=== PATIENT | female | born 1975 | race Caucasian/White ===

== ENCOUNTER → 2016-10-03 | Outpatient (CLI) | payer BC ==
[2016-10-03 11:45] LABS: BASO % 0.5 %; BASO ABS # 0.03 K/uL (0-0.2); COMPLETE YES; EOS % 0.6 %; HEMATOCRIT 36.1 % (37-47); IG% 0.2 %; LYMPH % 25.2 %; LYMPH ABS # 1.65 K/uL (1.2-3.4); MEAN CELL VOLUME 90.9 fL (80-100); MEAN CORPUSCULAR HEMOGLOBIN 30.5 pg (25-34); MEAN CORPUSCULAR HGB CONC 33.5 g/dl (32-36); MEAN PLATELET VOLUME 10.3 fL (7.4-10.4); MONO % 7.3 %; NEUT % 66.2 %; PLATELET COUNT 299 K/uL (130-400); RED BLOOD COUNT 3.97 M/uL (4.2-5.4); WHITE BLOOD COUNT 6.54 K/uL (4.8-10.8)
[2016-10-03 13:20] LABS: ALT/SGPT 21 U/L (12-78); AST/SGOT 13 U/L (15-37); BLOOD UREA NITROGEN 10 mg/dl (7-18); BUN/CREATININE RATIO 11.5 (10-20); CALCIUM 8.4 mg/dl (8.5-10.1); CARBON DIOXIDE 24 mmol/L (21-32); CHLORIDE 108 mmol/L (98-107); CREATININE 0.84 mg/dl (0.60-1.20); GLUCOSE 87 mg/dl (70-99); POTASSIUM 4.2 mmol/L (3.5-5.1); SODIUM 142 mmol/L (136-145)
[2016-10-03 13:29] LABS: ALKALINE PHOSPHATASE 114 U/L (45-117); FERRITIN 8.3 ng/ml (8.0-388.0)
[2016-10-06 22:33] LABS: MICROSOMAL AB <1 IU/ML (<9); T3 REVERSE **TC 90963 15 ng/dL (8-25)
== END | disposition home or self-care (01) ==
LOC: C.LAB 11:03
PROVIDERS: ATTEND Chiropractor
DX: M79.1 Myalgia (principal)

== ENCOUNTER → 2016-12-09 | Outpatient (CLI) | payer BC ==
[2016-12-09 13:24] LABS: BASO % 0.5 %; BASO ABS # 0.03 K/uL (0-0.2); COMPLETE YES; EOS % 0.9 %; HEMATOCRIT 29.3 % (37-47); IG% 0.3 %; LYMPH % 27.6 %; LYMPH ABS # 1.83 K/uL (1.2-3.4); MEAN CELL VOLUME 90.4 fL (80-100); MEAN CORPUSCULAR HEMOGLOBIN 30.2 pg (25-34); MEAN CORPUSCULAR HGB CONC 33.4 g/dl (32-36); MEAN PLATELET VOLUME 10.7 fL (7.4-10.4); MONO % 6.5 %; NEUT % 64.2 %; PLATELET COUNT 285 K/uL (130-400); RED BLOOD COUNT 3.24 M/uL (4.2-5.4); WHITE BLOOD COUNT 6.64 K/uL (4.8-10.8)
[2016-12-09 14:06] LABS: THYROID STIMULATING HORMONE 1.79 uIu/ml (0.300-4.500)
== END | disposition home or self-care (01) ==
LOC: C.LAB1850 11:58
PROVIDERS: ATTEND Obstetrics & Gynecology
DX: N92.0 Excessive and frequent menstruation with regular cycle (principal); N93.8 Other specified abnormal uterine and vaginal bleeding

== ENCOUNTER → 2017-10-26 | Outpatient (CLI) | payer OTHER ==
--- NOTE | 2017-10-26 14:04 | MAMMOGRAPHY REPORT ---
BILATERAL DIGITAL DIAGNOSTIC MAMMOGRAM TOMOSYNTHESIS WITH CAD AND TARGETED RIGHT ULTRASOUND: 8 CLINICAL HISTORY: 42-year-old woman presents with reported itchiness and pain in the right breast. S he reports that itchiness is deep within the breast and also describes an associated sharp and burnin g pain that comes and goes. No palpable lump, skin redness or skin crusting. No nipple discharge. Also due for annual bilateral mammograms. TECHNIQUE: Bilateral breast tomosynthesis in addition to standard 2D mammography was performed. Curre nt study was also evaluated with a Computer Aided Detection (CAD) system. COMPARISON: Comparison is made to exam dated: 06/03/2016 mammogram - [facility]. BREAST COMPOSITION: There are scattered areas of fibroglandular density in both breasts. FINDINGS: A square-shaped pain marker overlies the upper outer anterior right breast, denoting the ar ea of pain and itchiness pointed out by the patient. The glandular pattern is similar to prior mammo grams. There are a few benign-appearing round and punctate calcifications in the anterior right sid st, some of which correspond to dermis. No new suspicious mass, architectural distortion or cluster of suspicious microcalcifications is seen. There was possible skin thickening identified on the righ t MLO view in the periareolar region, which is likely artifactual due to nipple out of profile. Targeted ultrasound was performed in the area of abnormal sensation and itchiness pointed out by the patient, in the 7:00 to 8:00 right breast, 1 and 2 cm from the nipple. On ultrasound, sonographicall y normal tissue is seen without a suspicious solid or cystic mass. No focal skin thickening or drain able fluid collection identified. IMPRESSION: ACR BI-RADS CATEGORY 2: BENIGN, TARGETED ULTRASOUND ACR BI-RADS CATEGORY 2: BENIGN 1. Stable bilateral mammograms, without mammographic or targeted sonographic evidence of malignancy. 2. No suspicious mammographic or sonographic abnormality to explain multiple months of deep itchines s and sharp/burning pain in the right breast. Therefore, continued clinical follow-up is recommended . I will leave it up to clinician's discretion as to whether they feel surgical consultation is need ed. 3. Otherwise, recommend bilateral screening mammography in one year. These results and recommendations were discussed with the patient at the time of the exam. Approximately 10% of breast cancers are not detected with mammography. A negative mammographic report should not delay biopsy if a clinically suggestive mass is present. Julia Mirza M.D. ay/:10/26/2017 10:48:09 Rehab Nurse: Yana ARGUELLO)([place]opatra), [facility] letter sent: Normal 1/2 BI-RADS Code: ACR BI-RADS Category 2: Benign Ultrasound BI-RADS: ACR BI-RADS Category 2: Benign
== END | disposition home or self-care (01) ==
LOC: C.MAMM 09:51
PROVIDERS: ATTEND Family Medicine
DX: N64.4 Mastodynia (principal)

== ENCOUNTER 2023-12-07 10:17 | Observation (INO) ==
[2023-12-07] MEDS: KETOROLAC TROMETHAMINE 15 MG/ML VIAL IV STA (10:44)
[2023-12-07] MEDS: ONDANSETRON INJ 2 MG/ML 2 ML VIAL IV STA (10:45)
[2023-12-07] MEDS: fentaNYL citrate PF 100 MCG/2 ML VIAL IV STA ×2 (10:45→11:38)
[2023-12-07] MEDS: SODIUM CHLORIDE 0.9% 500 ML IV ONE (10:56)
[2023-12-07 11:10] LABS: Hematocrit (blood only) 39.4 % (37.0-47.0); Hemoglobin 13.4 g/dl (12.0-16.0); Mean Corpuscular Hemoglobin 30.6 pg (25.0-34.0); Mean Platelet Volume 10.4 fL (9.4-12.4); Platelet Count 303 K/uL (130-400); RDW Coefficient of Variation 13.5 % (11.5-14.5); RDW Standard Deviation 44.2 fL (36.4-46.3); Red Blood Count 4.38 M/uL (4.20-5.40); White Blood Count 8.99 K/ul (4.8-10.8)
[2023-12-07 11:20] LABS: Anion Gap 10 (3-11); BUN Creatinine Ratio 17.6 (10-20); Blood Urea Nitrogen 15 mg/dl (6-23); Calcium 9.1 mg/dl (8.6-10.3); Carbon Dioxide 24 mmol/L (21-32); Chloride 105 mmol/L (98-107); Est GFR (African American) 93.9 ml/min; Glucose 111 mg/dl (70-99(Fasting)); Potassium 4.1 mmol/L (3.5-5.1); Sodium 139 mmol/L (136-145)
--- NOTE | 2023-12-07 11:28 | Emergency Department Note ---
ED Provider Note History of Present Illness Chief Complaint: Wrist Pain Stated Complaint: BROKEN WRIST (R) Time Seen by Provider: 12/07/23 10:25 48-year-old female who presents the emergency department with complaint of severe right wrist pain after she tripped and fell down stairs in her home this morning. Patient denies any other injuries, including head injury, neck pain, back pain or other extremity injuries. The patient is right-hand dominant. She denies any tingling or numbness of the fingers, and rates her discomfort a 10 out of 10. Tetanus immunization is up-to-date. Home Medications Medication Instructions Recorded Confirmed Type hydrocodone 5 mg-acetaminophen 325 1 tab PO Q4H PRN pain #5 tabs 04/29/21 Rx mg tablet ibuprofen 200 mg tablet (Advil) 600 mg (3 x 200 mg) PO QID PRN 04/29/21 Rx fever or pain #30 tabs Allergies Allergy/AdvReac Type Severity Reaction Status Date / Time No Known Drug Allergies Allergy Verified 04/29/21 11:25 Past Med/Surg History Medical History No chronic diseases present Surgical History S/P dilation and curettage Family History Grandmother (Maternal) Malignant neoplasm cervix Ovarian cancer Diabetes Breast cancer Hypertension Grandmother (Paternal) Diabetes Grandfather (Maternal) Diabetes Grandfather (Paternal) Diabetes Myocardial infarction Mother Uterine leiomyoma Ovarian cyst Hyperlipidemia Hypertension Father Kidney stones Aunt Malignant neoplasm cervix Maternal Breast cancer Maternal Other No family history of adverse response to anesthesia Social History Smoking Status: Never smoker Second Hand Exposure: No; Do You Dip or Chew Tobacco: No; Hx Alcohol Use: Yes Alcohol Intake Frequency Comment: Occasional Hx Substance Use: No Preferred Language: Sudanese Communication Ability: Effective 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 Beliefs That Will Affect Care: None marital status: Current Living Situation: Family Feels Safe at Home: Yes Assistive Devices: None Physical Exam Vital Signs Vital Signs - 24 hr 12/07/23 10:19 12/07/23 12:01 12/07/23 14:10 Temperature 36.8 C 37 C Temperature Source Temporal Artery Scan Oral Pulse Rate 92 H Pulse Rate [Apical] 74 Pulse Rate [Left Finger] 82 Pulse Rhythm [Apical] Regular Pulse Rhythm [Left Finger] Regular Pulse Strength [Apical] Normal Pulse Strength [Left Finger] Normal Respiratory Rate 20 16 18 Respiratory Effort / Characteristics Non-Labored Non-Labored Non-Labored Spontaneous Respiratory Depth Normal Normal Normal Respiratory Pattern Regular Regular Blood Pressure [Left Arm] 125/81 113/65 Blood Pressure Mean [Left Arm] 95 81 Blood Pressure Position [Left Arm] Lying Pulse Oximetry 100 95 97 Oxygen Delivery Method Room Air Room Air Room Air Sepsis Recent Fever Within 48 Hours No Sepsis New/Unexplained Change in Mental Status No Sepsis Action Taken by Nursing No Action Required CONSTITUTIONAL: Healthy and well nourished. Patient appears in severe discomfort. HEENT: Normocephalic, atraumatic. RESPIRATORY: Clear to auscultation bilaterally with no wheezing, crackles, rhonchi or stridor. CARDIOVASCULAR: Regular rate and rhythm with no murmurs, rubs or gallops. MUSCULOSKELETAL: No tenderness to palpation through the metacarpals or phalanges. Cap refill of the fingers is less than 2 seconds. INTEGUMENTARY: No rash or other significant dermatologic conditions noted. HEMATOLOGIC: No ecchymosis or petechiae. PSYCHIATRIC: Flat affect. NEUROLOGIC: Right hand and fingers are sensory intact. Course Course Patient history and physical exam were performed. Nurses notes were reviewed. Vital signs were reviewed. IV access was established, and labs were drawn, reviewed and were normal. Patient was hydrated with a normal saline 500 cc bolus, and administered IV Toradol, fentanyl and Zofran. X-rays confirm a displaced and intra-articular distal radius fracture. Patient did require additional pain medication, and was administered additional IV fentanyl. I then reached out to Dr. Wharton, [facility], who came to the emergency department for close reduction under hematoma block. The patient did require additional IV Dilaudid prior to orthopedic arrival. The patient could not tolerate the hematoma block, therefore Dr. Wharton was going to take the patient to the OR. The patient was administered additional IV analgesics and Ativan for extreme anxiety. Please see Dr. Wharton's dictation for further treatment and final disposition. Administered Medications Hydromorphone HCl (Hydromorphone Inj 0.5 Mg/0.5 Ml Syr) 0.5 mg IV Q30M PRN PRN Reason: Pain Stop: 12/21/23 12:41 Last Admin: 12/07/23 13:26 Dose: 0.5 mg Documented By: GABY Lactated Ringer's (Lr) 1,000 mls @ 15 mls/hr IV .Q24H STACEY Stop: 01/06/24 14:29 Last Infusion: 12/07/23 14:35 Dose: Infused Documented By: Admin: 12/07/23 14:22 Dose: 15 mls/hr Documented By: KAMALJIT Discontinued Medications Bupivacaine HCl (Bupivacaine 0.5 % 5 Mg/1 Ml Mpf 30ml Vial) Confirm Administered Dose 30 ml .ROUTE .STK-MED ONE Stop: 12/07/23 12:08 Last Admin: 12/07/23 14:20 Dose: 30 ml Documented By: MICHELLE Fentanyl Citrate (Fentanyl Citrate Pf 100 Mcg/2 Ml Vial) 100 mcg IV NOW STA Stop: 12/07/23 10:32 Last Admin: 12/07/23 10:45 Dose: 100 mcg Documented By: STONE Fentanyl Citrate (Fentanyl Citrate Pf 100 Mcg/2 Ml Vial) 100 mcg IV NOW STA Stop: 12/07/23 11:16 Last Admin: 12/07/23 11:38 Dose: 100 mcg Documented By: GABY Hydromorphone HCl (Hydromorphone Inj 0.5 Mg/0.5 Ml Syr) 0.5 mg IV NOW STA Stop: 12/07/23 12:02 Last Admin: 12/07/23 12:12 Dose: 0.5 mg Documented By: MICHELLE Sodium Chloride (Nss) 500 mls @ 999 mls/hr IV .Q31M ONE Stop: 12/07/23 11:01 Last Admin: 12/07/23 10:56 Dose: 999 mls/hr Documented By: STONE Ketorolac Tromethamine (Ketorolac Tromethamine 15 Mg/Ml Vial) 15 mg IV NOW STA Stop: 12/07/23 10:32 Last Admin: 12/07/23 10:44 Dose: 15 mg Documented By: STONE Lidocaine HCl (Xylocaine 1%/Sod Bicarb 20 Ml Vial) Confirm Administered Dose 1 ml INFIL .STK-MED ONE Stop: 12/07/23 12:09 Last Admin: 12/07/23 14:21 Dose: 1 ml Documented By: MICHELLE Lorazepam (Lorazepam 1 Mg/1 Ml Syr Ed Inj Use) 1 mg IV ONE STA Stop: 12/07/23 12:38 Last Admin: 12/07/23 12:50 Dose: 1 mg Documented By: MICHELLE Ondansetron HCl (Ondansetron Inj 2 Mg/Ml 2 Ml Vial) 4 mg IV NOW STA Stop: 12/07/23 10:32 Last Admin: 12/07/23 10:45 Dose: 4 mg Documented By: STONE Medical Decision Making Medical Records Attestation: I reviewed the patient's medical records. Home Medications was personally reviewed by me Laboratory Data Attestation: I reviewed the patient's lab results. 12/07/23 10:41 12/07/23 10:41 Lab Results 12/07/23 Range/Units 10:41 WBC 8.99 (4.8-10.8) K/ul RBC 4.38 (4.20-5.40) M/uL Hgb 13.4 (12.0-16.0) g/dl Hct 39.4 (37.0-47.0) % MCV 90.0 (80.0-100.0) fL MCH 30.6 (25.0-34.0) pg MCHC 34.0 (32.0-36.0) g/dL RDW Std Deviation 44.2 (36.4-46.3) fL RDW Coeff of Brian 13.5 (11.5-14.5) % Plt Count 303 (130-400) K/uL MPV 10.4 (9.4-12.4) fL Sodium 139 (136-145) mmol/L Potassium 4.1 (3.5-5.1) mmol/L Chloride 105 (98-107) mmol/L Carbon Dioxide 24 (21-32) mmol/L Anion Gap 10 (3-11) BUN 15 (6-23) mg/dl Creatinine 0.85 (0.6-1.2) mg/dl Est Cr Clr Drug Dosing Not Reportable Est GFR ( Amer) 93.9 ml/min Est GFR (Non-Af Amer) 81.0 ml/min BUN/Creatinine Ratio 17.6 (10-20) Glucose 111 H (70-99(Fasting)) mg/dl Calcium 9.1 (8.6-10.3) mg/dl HCG, Qual Negative (Negative) Imaging Data Attestation: I personally reviewed and interpreted this imaging study as follows: My Impression: My interpretation of right wrist x-rays confirms displaced and intra-articular distal radius fracture. Radiologist report was also reviewed with concurrence. Radiologist's Impression: Wrist X-Ray 12/07/23 10:31 RIGHT WRIST 2 VIEWS CLINICAL HISTORY: Right wrist injury. Deformity. FINDINGS: AP and crosstable lateral views of the right wrist are obtained. No prior studies are available for comparison at the time of dictation. The skeletal structures are well mineralized. There is a displaced and comminuted horizontal fracture through the distal radial metaphysis with intra-articular extension. The distal fragment is dorsally displaced by at least one shaft length and overrides the proximal radius. There is significant overlying soft tissue edema. The distal ulna appears intact. The radiocarpal articulation appears maintained. IMPRESSION: 1. Displaced and overriding fracture of the distal radial metaphysis as above. 2. The distal ulna appears intact. Electronically signed by: Cuong Trejo M.D. 12/07/2023 11:[address] 12/07/23 12:28 CT wrist RT wo con HISTORY: 48 years-old Female fracture acute right wrist pain status post fall COMPARISON: Wrist radiographs of same day TECHNIQUE: Multiple axial CT images of the right wrist were obtained without IV contrast. Additional 3-D rendered images were generated from a separate workstation and submitted for review. A dose lowering technique was used consistent with the principals of ALARA. FINDINGS: Acute displaced and comminuted transversely oriented fracture through the distal radial metaphysis with intra-articular extension again noted. The distal fragment is dorsally displaced 1.6 cm and demonstrates 2.2 cm foreshortening/apposition. The radiocarpal articulation appears maintained. No intra-articular loose body identified within the radiocarpal articulation. The carpal bones appear intact. Minimal osteoarthritis of the triscaphe and first carpometacarpal joints. The imaged ulna and carpal bones appear intact. Tendons and ligaments are not well evaluated by CT technique. Moderate subcutaneous and deep tissue edema with posttraumatic joint effusion/hemarthrosis of the wrist. 2 mm bone fragment interposed between the trapezoid and capitate on image 325 series 3 favors a small osteophyte. A tiny age-indeterminate fracture fragment considered less likely. IMPRESSION: 1. Acute, comminuted, displaced and foreshortened distal radial fracture redemonstrated. 2. No additional acute fracture or dislocation identified. ACT 112: Negative or not required by law. The above report was generated using voice recognition software. It may contain grammatical, syntax or spelling errors. Electronically signed by: Lui Figueroa M.D. 12/07/2023 2:43 PM Prescription Drug Monitoring [place] Drug Monitoring Program reviewed and no issues identified MDM Narrative See ED Course section for further details of today's visit. The patient presents for evaluation of injuries to her right wrist after she fell down steps at her home, suffering a displaced and intra-articular distal radius fracture. Reduction was attempted using hematoma block by [facility], but unfortunately was not tolerated. The patient was taken to the OR for further surgical management. Please see orthopedic dictations for further procedure details. Impression Closed fracture of right distal radius Discharge Plan Visit Data Chief Complaint: Wrist Pain Stated Complaint: BROKEN WRIST (R) ED Provider: Adilson Mo ED Midlevel Provider: Fritz Wakefield Discharge Problem: Closed fracture of right distal radius Patient Disposition: Home - Self-Care Discharge Problem: Closed fracture of right distal radius Qualifiers: Encounter type: initial encounter Fracture morphology: other intra-articular Q ualified Code(s): S52.571A - Other intraarticular fracture of lower end of right radius, initial encounter for closed fracture
--- NOTE | 2023-12-07 11:31 | XRay Report ---
RIGHT WRIST 2 VIEWS CLINICAL HISTORY: Right wrist injury. Deformity. FINDINGS: AP and crosstable lateral views of the right wrist are obtained. No prior studies are avail able for comparison at the time of dictation. The skeletal structures are well mineralized. There is a displaced and comminuted horizontal fracture through the distal radial metaphysis with intra-articu lar extension. The distal fragment is dorsally displaced by at least one shaft length and overrides t he proximal radius. There is significant overlying soft tissue edema. The distal ulna appears intact. The radiocarpal articulation appears maintained. IMPRESSION: 1. Displaced and overriding fracture of the distal radial metaphysis as above. 2. The distal ulna appears intact. Electronically signed by: Cuong Trejo M.D. 12/07/2023 11:30 AM
[2023-12-07] MEDS: HYDROmorphone INJ 0.5 MG/0.5 ML SYR IV STA (12:12)
[2023-12-07] MEDS: LORazepam 1 MG/1 ML SYR ED Inj Use IV STA (12:50)
--- NOTE | 2023-12-07 13:21 | Anesthesiology Consultation ---
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 History Surgery Operation Date: 12/07/23 15:00 Proposed Procedures p Right Wrist Closed Reduction, Possible Open Reduction Internal Fixation - Surya John MD Height/Weight Height: 5 ft 4 in Allergies Allergy/AdvReac Type Severity Reaction Status Date / Time No Known Drug Allergies Allergy Verified 04/29/21 11:25 Medications Home Medications Medication Instructions Recorded Confirmed Last Taken hydrocodone 5 mg-acetaminophen 325 1 tab PO Q4H PRN pain #5 tabs 04/29/21 Unknown mg tablet ibuprofen 200 mg tablet (Advil) 600 mg (3 x 200 mg) PO QID PRN 04/29/21 Unknown fever or pain #30 tabs Past Medical History Medical History No chronic diseases present Past Family History Family History Grandmother (Maternal) Malignant neoplasm cervix Ovarian cancer Diabetes Breast cancer Hypertension Grandmother (Paternal) Diabetes Grandfather (Maternal) Diabetes Grandfather (Paternal) Diabetes Myocardial infarction Mother Uterine leiomyoma Ovarian cyst Hyperlipidemia Hypertension Father Kidney stones Aunt Malignant neoplasm cervix Maternal Breast cancer Maternal Other No family history of adverse response to anesthesia Past Surgical History Surgical History S/P dilation and curettage Social History Smoking Status: Never smoker Do You Dip or Chew Tobacco: No Hx Alcohol Use: Yes alcohol intake frequency: holidays/special occasions only Hx Substance Use: No Physical Exam Vital Signs Last Vital Signs Temp 98.2 F 12/07/23 10:19 Pulse 74 12/07/23 12:01 Resp 16 12/07/23 12:01 BP 125/81 12/07/23 12:01 Pulse Ox 95 12/07/23 12:01 O2 Del Method Room Air 12/07/23 12:01 Testing Laboratory Results 12/07/23 10:41 12/07/23 10:41
[2023-12-07] MEDS: HYDROmorphone INJ 0.5 MG/0.5 ML SYR IV PRN ×2 (13:26→19:43)
[2023-12-07 13:32] LABS: Pregnancy Test, Serum Negative (Negative)
[2023-12-07] MEDS ORDERED: ePHEDrine sulfate 50 MG/ML AMP IV PRN (13:45)
[2023-12-07] MEDS ORDERED: ONDANSETRON INJ 2 MG/ML 2 ML VIAL IV PRN ×2 (13:45→17:03)
[2023-12-07] MEDS ORDERED: ATROPINE SULFATE 0.1 MG/ML 10ML SYR IV PRN (13:45)
--- NOTE | 2023-12-07 13:46 | Orthopedic Consultation ---
Date of Consultation December 07, 2023 Assessment & Plan (1) Closed fracture of right distal radius: The patient was educated regarding today's findings. Conservative care measures were discussed. Necessity for reduction was discussed. Due to excessive capacity in the ED, sedation was not available for the patient. Elected to try hematoma block to see if this would provide adequate anesthesia for reduction. Informed oral consent was obtained from the patient. Allergies were confirmed as being none. Location of the fracture was identified. Skin was cleansed with Betadine x 2 and alcohol swab x 1. 8 mL mixture of 1% buffered lidocaine and 0.5% plain Marcaine was administered with a 25-gauge needle from a dorsal approach. Bone was contacted and then the medication was administered. The patient had significant pain with the procedure. She had just received 0.5 mg of Dilaudid prior to the procedure. This did not seem to help. She continued to have pain afterwards. She was quite anxious and remained very tearful. Because of this, discussion ensued with Dr. John for reduction in the OR. Please see his dictation for final management. Supervising Physician Co-Signing Physician Notes I saw and examined the patient, reviewed her x-rays and CT scan, formulated the plan, and performed the substantial portion of the visit. Patient has a severely displaced and comminuted intra-articular distal radius fracture with bayonet opposition and shortening. She did not respond to a hematoma block for possible closed reduction. She is therefore indicated for a general anesthetic in order to perform a closed reduction versus open reduction internal fixation possible external fixation. I discussed with her the severe nature of her injury and the inherent risks of subsequent arthritis because of this injury as well as stiffness, pain, nerve injury, possible need for another surgery, and the other risks of surgery. Alternatives to surgery were also reviewed. After reviewing all of her options she elected to proceed with surgery. All questions were answered. Informed consent was signed. We will proceed to the operating room this afternoon given that she has been n.p.o. since last night. History of Present Illness Reason for Consultation: Right wrist fracture Requesting Physician: Chepe EVANS History of Present Illness This 48-year-old female presents today with her , for evaluation of her right wrist. She arrived at the ED after falling down approximately 5 steps while taking a toy truck to the basement. She slipped on the steps and landed on the basement floor. She had medial onset of pain in her wrist. Deformity was noted. [id number]. She denies any numbness or tingling. No prior history of wrist injury. Radiographic imaging has already been obtained. Last food was last evening. Allergies Allergy/AdvReac Type Severity Reaction Status Date / Time No Known Drug Allergies Allergy Verified 04/29/21 11:25 Home Medications Medication Instructions Recorded Confirmed Type hydrocodone 5 mg-acetaminophen 325 1 tab PO Q4H PRN pain #5 tabs 04/29/21 Rx mg tablet ibuprofen 200 mg tablet (Advil) 600 mg (3 x 200 mg) PO QID PRN 04/29/21 Rx fever or pain #30 tabs Patient History Medical History No chronic diseases present Surgical History S/P dilation and curettage Family History Grandmother (Maternal) Malignant neoplasm cervix Ovarian cancer Diabetes Breast cancer Hypertension Grandmother (Paternal) Diabetes Grandfather (Maternal) Diabetes Grandfather (Paternal) Diabetes Myocardial infarction Mother Uterine leiomyoma Ovarian cyst Hyperlipidemia Hypertension Father Kidney stones Aunt Malignant neoplasm cervix Maternal Breast cancer Maternal Other No family history of adverse response to anesthesia Social History Smoking Status: Never smoker Second Hand Exposure: No; Do You Dip or Chew Tobacco: No; Hx Alcohol Use: Yes Alcohol Intake Frequency Comment: Occasional Hx Substance Use: No Preferred Language: Omani Communication Ability: Effective 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 Crying and yelling at times. Skin: Warm and dry with good turgor. No rashes. No ecchymosis or erythema. Obvious deformity of her right wrist. No open wounds. Musculoskeletal: Patient has discomfort with palpation of her right shoulder, elbow, forearm, wrist, and hand. Worst pain is at the wrist. There is an obvious wrist deformity. She has minimal motion of her digits secondary to wrist pain. Passive flexion and extension of the fingers causes severe increase of her wrist pain. No pain with palpation over her left arm. Intact motor function of her lower extremities. She has been ambulatory. Neurologic: Gross sensation is intact across the right hand and digits by soft touch. Capillary refill is equal for each of the fingers. Results & Data Vital Signs (Past 12 Hours) Vital Signs Temp Pulse Pulse Resp BP Pulse Ox O2 Del Method 12/07/23 12:01 74 16 125/81 95 Room Air 12/07/23 10:19 36.8 C 92 H 20 100 Room Air Laboratory Results CBC obtained today shows a white count of 8.99. H&H of 13.4 and 39.4. Platelets of 303,000. PRP shows normal sodium, potassium, and chloride. Anion gap of 10. BUN of 15 with creatinine 0.85. Blood glucose today is 111. test is negative. Diagnostic Findings Radiographic imaging obtained today in the ED shows a displaced and overriding fracture of the distal radius with intra-articular extension. No fracture of the ulna was visualized. (1) Closed fracture of right distal radius Encounter type: initial encounter Fracture morphology: other intra-articular Qualified Code(s): S52.571A - Other intraarticular fracture of lower end of right radius, initial encounter for closed fracture
[2023-12-07] MEDS ORDERED: ONDANSETRON INJ 2 MG/ML 2 ML VIAL ONE (13:50)
[2023-12-07] MEDS ORDERED: LIDOCAINE 2% 2 ML VIAL/AMP(20MG/ML) INFIL ONE (13:50)
[2023-12-07] MEDS ORDERED: DEXAMETHASONE SOD INJ 4 MG/ML VIAL ONE (13:50)
[2023-12-07] MEDS ORDERED: PROPOFOL IV EMULSION 10 MG/ML 20 ML VIAL IV ONE (13:50)
[2023-12-07] MEDS ORDERED: fentaNYL citrate PF 100 MCG/2 ML VIAL ONE ×2 (13:51→15:29)
[2023-12-07] MEDS ORDERED: MIDAZOLAM HCL 1 MG/ML 2ML VIAL ONE (13:51)
[2023-12-07] MEDS: BUPIVACAINE 0.5 % 5 MG/1 ML MPF 30ML VIAL ONE ×2 (14:20→17:00)
[2023-12-07] MEDS: XYLOCAINE 1%/SOD BICARB 20 ML VIAL INFIL ONE (14:21)
[2023-12-07] MEDS: LACTATED RINGER'S 1,000 ML IV SCH (14:22)
[2023-12-07] MEDS: ceFAZolin 2000MG 2,000 MG/15 ML SYR IV ONE (14:37)
--- NOTE | 2023-12-07 14:45 | CT Scan Report ---
CT wrist RT wo con HISTORY: 48 years-old Female fracture acute right wrist pain status post fall COMPARISON: Wrist radiographs of same day TECHNIQUE: Multiple axial CT images of the right wrist were obtained without IV contrast. Additional 3-D rendered images were generated from a separate workstation and submitted for review. A dose lower ing technique was used consistent with the principals of SALLY. FINDINGS: Acute displaced and comminuted transversely oriented fracture through the distal radial metaphysis wi th intra-articular extension again noted. The distal fragment is dorsally displaced 1.6 cm and demons trates 2.2 cm foreshortening/apposition. The radiocarpal articulation appears maintained. No intra-ar ticular loose body identified within the radiocarpal articulation. The carpal bones appear intact. Mi nimal osteoarthritis of the triscaphe and first carpometacarpal joints. The imaged ulna and carpal kaycee edvin appear intact. Tendons and ligaments are not well evaluated by CT technique. Moderate subcutaneous and deep tissue e miranda with posttraumatic joint effusion/hemarthrosis of the wrist. 2 mm bone fragment interposed betwe en the trapezoid and capitate on image 325 series 3 favors a small osteophyte. A tiny age-indetermina te fracture fragment considered less likely. IMPRESSION: 1. Acute, comminuted, displaced and foreshortened distal radial fracture redemonstrated. 2. No additional acute fracture or dislocation identified. ACT 112: Negative or not required by law. The above report was generated using voice recognition software. It may contain grammatical, syntax o r spelling errors. Electronically signed by: Lui Figueroa M.D. 12/07/2023 2:43 PM
[2023-12-07] MEDS ORDERED: ROCURONIUM BROMIDE 10 MG/ML 5 ML VIAL IV ONE (14:52)
[2023-12-07] MEDS ORDERED: ceFAZolin 330 MG/ML 1 GM VIAL ONE (16:04)
[2023-12-07] MEDS ORDERED: SODIUM CHLORIDE 0.9% PF INJ 10 ML VIAL ONE (16:05)
[2023-12-07] MEDS: ceFAZolin 2,000 MG/15 ML IV PUSH IV ONE (16:07)
[2023-12-07] MEDS ORDERED: NEOSTIGMINE METHYLSULFATE 1 MG/ML 10ML VIAL ONE (16:39)
[2023-12-07] MEDS ORDERED: GLYCOPYRROLATE 0.2 MG/ML VIAL ONE (16:39)
[2023-12-07] MEDS ORDERED: diphenhydrAMINE 50 MG/ML VIAL IV PRN (17:03)
[2023-12-07] MEDS ORDERED: ALUMINUM/MAGNESIUM SUSP 30 ML UDC PO PRN (17:03)
--- NOTE | 2023-12-07 17:03 | Operative Report ---
Post Operative Report Pre & Post Diagnosis Operation Date: 12/07/23 15:00 Pre-Op Diagnosis: Grade 1 open fracture of right distal radius Post-Op Diagnosis: Grade 1 open fracture of right distal radius I identified the patient and participated in the time-out.: Yes Procedure Operation Date: 12/07/23 15:00 Actual Procedures p grade one Right distal radius Open Reduction Internal Fixation, right wrist incision and drainage to bone(Right) - Surya John MD Surgeon Surya John MD Superintendent Storage Area Kim Saha MD; Edison Kasper PA-C Estimated Blood Loss 15 Findings Consistent with Post-Op Diagnosis Specimens none Description of Procedure I was present during the entire case assisting with positioning, prepping, draping, wound retraction, wound closure, dressing and splint application. Fellow also present. I served as an extra set of hands during the case. Please see Dr. John procedure note for specifics of the case. I attest to the content of the Intraoperative Record and any orders documented therein. Any exceptions are noted below.
--- NOTE | 2023-12-07 17:09 | Operative Report ---
Post Operative Report Pre & Post Diagnosis Operation Date: 12/07/23 15:00 Pre-Op Diagnosis: Grade 1 open, comminuted, displaced, intra-articular fracture of right distal radius with greater than 3 fragments Post-Op Diagnosis: Grade 1 open comminuted, displaced, intra-articular fracture of right distal radius with greater than 3 fragments I identified the patient and participated in the time-out.: Yes Procedure Operation Date: 12/07/23 15:00 Actual Procedures p grade one Right distal radius Open Reduction Internal Fixation, right wrist incision and drainage to bone(Right) - Surya John MD Surgeon Surya John MD Assistant Therapy Aide Kim Saha MD and SPEEDY Kasper PA-C. Estimated Blood Loss 15 Findings Consistent with Post-Op Diagnosis Specimens None Anesthesia Type General Complications none Disposition Disposition: Recovery Room Indications 48-year-old female, slipped and fell carrying a toy truck down her stairs at her home this morning. Landed on her outstretched wrist. Immediate onset of pain and deformity. She presented to the emergency room where she was in exquisite pain. x-rays were obtained demonstrating a 100% displaced distal radius fracture with intra-articular extension, comminution, and bayonet apposition. She was evaluated by my partner Dr. Wharton as well as Marcelino Norwood my physicians clinic assistant. They performed a hematoma block in hopes of doing a closed reduction, however she did not achieve any significant pain relief from the hematoma block. Therefore she was a candidate for open reduction internal fixation of her fracture. I was available to perform this surgery this afternoon therefore I ordered a CT scan which I reviewed showing the intra-articular nature of the fracture as well as the multiple comminuted fragments including a large radial styloid piece, a separate lunate facet piece that was split in the coronal plane, 2 small volar cortical pieces, and multiple smaller cancellous pieces. At the time I saw her she had already been splinted. I did not take the splint down as the patient reported she was more comfortable in the splint than she had previously been. I had a long discussion with the patient and her about the severe nature of her injury. she is at risk of arthritis in her wrist secondary to the severe nature of her fracture. Also at risk of stiffness, chronic pain, and incomplete relief of her symptoms. After reviewing all of her options she elected to proceed with surgery. All questions were answered. Informed consent was signed. Description of Procedure Patient was identified in the preoperative holding area where her surgical site was marked. She was brought back to the main operating room where she was placed on the operating room table, and general anesthesia was administered. All bony prominences were padded. Her splint was removed. At this time I was able to inspect her Skin for the first time. She had a 3 mm wide transverse laceration at the level of the palmar wrist crease on the ulnar side of the wrist. Blood was oozing from this wound consistent with a grade 1 open fracture. Therefore I decided to not attempt a closed reduction and simply do an open irrigation and debridement to bone, followed by open reduction internal fixation. A nonsterile tourniquet was placed over the upper arm. The limb was prepped and draped in the usual sterile fashion. Prior to incision a multidisciplinary timeout was called. All in the room were in agreement. I began by exsanguinating the limb with an Esmarch bandage. Tourniquet was inflated to 250 mmHg. An L-shaped incision was made on the volar aspect of the wrist. This was transverse towards the wrist to include the transverse incision and extended radially across the volar aspect of the distal forearm then proximally along the radial side of the FCR tendon. We dissected down through subcutaneous tissues and the proximal aspect of the wound to the level of the FCR tendon sheath outside of the zone of injury. We then raised a full- thickness skin flap just above the fascia to expose the entirety of the volar aspect of the wrist. The skin flap was then sutured back using a nylon suture. We were able to visualize the defect in the fascia from the open wound which tracked down to the fractured distal radius. This broke the fascia just immediately ulnar to the FCU tendon and tract just underneath where the ulnar artery and nerve are typically located. With the open wound exposed we then irrigated out the fascial defect with 1 L of normal saline. Once this was complete we proceeded to perform the open reduction internal fixation of her distal radius. The fascia overlying the FCR tendon was incised in line with the incision from proximal to distal. FCR was retracted ulnarly. The subs sheath was incised and Parona space was entered. Hematoma was evacuated. Approximately 2 cm of the proximal FDS muscle fibers were released off the radial side of the radius proxi juju. The pronator quadratus was then reflected subperiosteally starting at the fracture and moving proximally so that the pronator quadratus could be reflected from radial to ulnar. Once this was complete I performed a reduction maneuver. The proximal fracture fragment was grasped with a lion-jaw clamp. Using a volar carpal translation maneuver combined with traction I was able to achieve a reduction. Inspection of the fracture at this time showed 2 small cortical fragments on the volar cortex 1 radially and the other ulnarly. 2 small pieces of cancellous bone that were stuck into the pronator quadratus were removed and discarded.Once I had the volar cortex anatomically reduced I then drove a wire through the radial styloid fragment and into the proximal fragment to hold the reduction. Fluoroscopy was brought in and we checked the reduction which I was very happy with. Next, the [employer]ine [employer] DVR plate was brought up into the wound. I trialed a narrow with plate but it was too narrow and so I elected to use a standard width plate for a right wrist, short length with 3 proximal screw holes. This plate was secured to the bone using K wires. Fluoroscopy was brought in to check the position of the plate. Minor modifications were made to the plate position so it was optimally positioned in order to capture all of the fracture fragments. Once the plate was in ideal position we then placed a 3.5 mm cortical screw in bicortical fashion through the oblong hole. 2 more 3.5 mm cortical screws were placed proximally. 4 locking screws were then placed distally working to avoid the K wires already in position. Once the locking screws were in position we took an x-ray shot and we were happy with the screw lengths and continue to be happy with our reduction and plate position. The radial styloid K wire as well as the other K wire in the distal aspect of the plate were then removed. The remaining distal locking screw holes were filled. All of the screws were placed in such a way as to remain short of the dorsal cortex so as to not irritate the extensor tendons. Once all of her screws were in position we took our final fluoroscopic images. We confirmed our reduction, plate position, and screw lengths all of which we are happy with. The wound was then irrigated out with another 1 L of normal saline to include the volar Melo approach to the distal radius as well as the fascial defect from the open injury. Tourniquet was let down and meticulous hemostasis was ensured. The wound was then closed with 3-0 Vicryl sutures in the deep dermis and 4-0 nylon sutures in horizontal mattress fashion for the skin. Sterile dressings were applied followed by a volar plaster slab splint with the wrist held in neutral and the MCP joints left free. Patient was then awoke from anesthesia and transferred recovery in stable condition. Postoperative course: Patient will be admitted overnight for 24 hours of IV antibiotics given the open fracture. Plan on discharging her home tomorrow after her IV antibiotics are completed. 2 weeks from now she will follow-up for suture removal, x-rays, and transition to a removable wrist splint. I attest to the content of the Intraoperative Record and any orders documented therein. Any exceptions are noted below.
[2023-12-07] MEDS ORDERED: SODIUM CHLORIDE 0.9% 1,000 ML IV SCH (17:15)
--- NOTE | 2023-12-07 17:16 | Operative Report ---
Post Operative Report Pre & Post Diagnosis Operation Date: 12/07/23 15:00 Pre-Op Diagnosis: Grade 1 open fracture of right distal radius Post-Op Diagnosis: Grade 1 open fracture of right distal radius I identified the patient and participated in the time-out.: Yes Procedure Operation Date: 12/07/23 15:00 Actual Procedures p grade one Right distal radius Open Reduction Internal Fixation, right wrist incision and drainage to bone(Right) - Surya John MD Surgeon Surya John MD Boom Master Kim Saha MD and SPEEDY Kasper PA-C. Estimated Blood Loss 15 Findings Consistent with Post-Op Diagnosis Same as postoperative diagnosis. Specimens None Description of Procedure Please see detailed operative note. I attest to the content of the Intraoperative Record and any orders documented therein. Any exceptions are noted below.
--- NOTE | 2023-12-07 17:25 | Fluoroscopy Report ---
FL wrist RT 3V RTN CLINICAL HISTORY: Right wrist open reduction and internal fixation. COMPARISON STUDY: Right wrist radiographs and CT of the right wrist December 07, 2023. FLUOROSCOPY TIME: 21 seconds. Ka, r: 0.54 mGy FLUOROSCOPIC IMAGES: 3 FINDINGS: Fluoroscopy was provided during open reduction and internal fixation with plate and screws of the distal right radial fracture. Fracture alignment has markedly improved and appears near anatom ic. There are no unexpected radiopaque foreign bodies. IMPRESSION: Fluoroscopy provided during open reduction and internal fixation of the distal right rad ial fracture. ACT 112: Negative or not required by law. Electronically signed by: Duke Marcelo M.D. 12/07/2023 5:24 PM
[2023-12-07] MEDS: fentaNYL citrate PF 100 MCG/2 ML VIAL IV PRN (17:36)
--- NOTE | 2023-12-07 18:03 | XRay Report ---
XR wrist RT min 3V routine CLINICAL HISTORY: Post op ORIF COMPARISON: CT of the right wrist and right wrist radiographs performed earlier today. FINDINGS: Overlying cast is noted. Open reduction and internal fixation of the distal right radial f racture with plate and screws is noted. Fracture alignment has markedly improved and appears near iraida tomic. There are no unexpected radiopaque foreign bodies. Carpal bones are intact. IMPRESSION: Expected findings following open reduction and internal fixation of the distal right radi al fracture. ACT 112: Negative or not required by law. Electronically signed by: Duke Marcelo M.D. 12/07/2023 6:02 PM
--- NOTE | 2023-12-07 19:00 | Anesthesiology Progress Note ---
Date of Service December 07, 2023 Anesthesia Post Procedure Vital Signs Vital Signs: Temp Pulse Pulse Pulse Resp BP Pulse Ox 12/07/23 18:45 37.3 C 94 H 20 109/73 98 12/07/23 18:20 81 17 116/75 96 12/07/23 18:10 36.5 C 95 H 17 116/62 99 12/07/23 18:00 79 14 113/59 L 97 12/07/23 17:50 77 12 112/63 96 12/07/23 17:40 87 17 106/67 96 12/07/23 17:30 76 19 108/63 99 12/07/23 17:20 79 14 118/64 98 12/07/23 17:12 36.1 C L 97 H 18 148/79 H 98 12/07/23 14:10 37 C 82 18 113/65 97 12/07/23 12:01 74 16 125/81 95 12/07/23 10:19 36.8 C 92 H 20 100 O2 Del Method O2 Flow Rate 12/07/23 18:45 Nasal Cannula 1 12/07/23 18:20 Nasal Cannula 2 12/07/23 18:10 Nasal Cannula 2 12/07/23 18:00 Nasal Cannula 2 12/07/23 17:50 Nasal Cannula 2 12/07/23 17:40 Nasal Cannula 2 12/07/23 17:30 Nasal Cannula 2 12/07/23 17:20 Oxymask 4 12/07/23 17:12 Oxymask 6 12/07/23 14:10 Room Air 12/07/23 12:01 Room Air 12/07/23 10:19 Room Air Pain Intensity Right Wrist: Pain Intensity: 3 Transfer of Care Handoff Completed per policy Notes Mental Status: alert / awake / arousable Patient Amnestic to Procedure: Yes Nausea / Vomiting: adequately controlled Pain: adequately controlled Airway Patency, RR, SpO2: stable & adequate BP & HR: stable & adequate Hydration State: stable & adequate Anesthetic Complications: no major complications apparent
[2023-12-07] MEDS: ASPIRIN 81 MG ECTAB PO SCH (21:00)
[2023-12-07] MEDS: oxyCODONE HCL IR 5 MG TAB (IMMEDIATE RELEASE) PO PRN (22:25)
--- OUTSIDE RECORDS SUMMARY | 2023-12-07 23:13 | External Medical Summary | Continuity of Care Document ---
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 Name Role Phone Chrissy Washington Primary Care Physician [phone] [facility] [id number] Date(s): 09/28/23 - 09/28/23 [facility] [address] [facility] [address] [facility], [facility] [address] [place] [address] [phone] Encounter Diagnosis Sore throat(Discharge Diagnosis) - 09/28/23 Discharge Disposition: Home or Self Care Attending Physician: DO Gold Stephanie Marie Allergies, Adverse Reactions, Alerts No Known Allergies Immunizations Given and Recorded Vaccine Date Status Refusal Reason tetanus/diphtheria/pertuss, acel (Tdap) 06/14/16 G iven Medications amoxicillin 500 mg oral tablet Start: 09/28/23 9:46:00 EST, 1 tab, PO, bid, Disp# 20 tab, Refills: 0, Pharmacy: [id number] Start Date: 09/28/23 Stop Date: 10/08/23 Status: Ordered ibuprofen Start: 05/24/21 8:47:00 EDT, 400 mg =, PO, q6h Start Date: 05/24/21 Status: Ordered Mental Status 09/28/23 Barriers to Learning one year None evide nt Mandatory Health Literacy Documentation Yes Health Literacy Communication Barriers N ever Primary Language Greek Problem List Condition Confirmation Course Effective Dates Status Health St atus Informant Left hand pain Confirmed Active Headache Confirmed Active Mallet finger Confirmed Active Atypical migraine Confirmed Active Weight disorder Confirmed Active Diagnosis Diagnosis Type Effective Dates Health Status [facility] Informant Sore throat Discharge Diagnosis 09/28/23 Non-Specified Procedures Procedure Date Related Diagnosis Body Site Status Pinning 1 04/29/[address] of abdomen and pelvis wit hout contrast 2 12/31/18 Completed Ultrasound of pelvis and rig ht lower extremity 3 12/31/18 Completed Mammogram 4 10/26/17 Completed Mammogram 5 06/03/16 Completed 1closed reduction, percutaneous pinning left small finger mallet fracture 21. No urinary calculi or hydronephrosis. 2. Normal appendix. No bowel obstruction. 3. Fluid-filled ascending colon which suggests a diarrheal state. 4. Probable 4.2cm left hepatic lobe cyst. 5. 3.5cm left adnexal lesion which favors an ovarian cyst. 31. No sonographic evidence of ovarian torsion. 2. 3.4cm left ovarian cyst. 4Stable bilateral mammograms without mammographic or targeted sonographic evidence of malignancy 5There is no mammographic evidence of malignancy. A 1yr screening mammogram is recommended. Results Laboratory List Name Date Rapid Strep POC Outpt (Strep Rapid POC O utpt) 09/28/23 Most recent to oldest [Reference Range]: 1 Rapid Strep Screen, POC Negative 1 (09/28/23 9:49 AM) Rapid Strep Screen Ref Range [negative] (09/28/23 9:49 AM) Culture sent to lab for confirmation Yes (09/28/23 9:49 AM) 1Result Comment: Performed at: [facility], [facility] [facility], [address], [place] [address] Vital Signs Most recent to oldest [Reference Range]: 1 Patient Weight 80.7 kg (09/28/23 9:19 AM) Temperature [36.5-37.9 DegC] 36.9 DegC (09/28/23 9:19 AM) Heart Rate 102 bpm (09/28/23 9:19 AM) Respiratory Rate 17 br/min (09/28/23 9:19 AM) Blood Pressure 124/72mmHg (09/28/23 9:19 AM) Cuff Pulse Pressure 52 mmHg (09/28/23 9:19 AM) BP Location # 1 Left Arm (09/28/23 9:19 AM) Social History Social History Type Response Smoking Status Never smoked cigaret ambrosio Sex Female Patient Care team information Care Team Personnel Name: MD Felix, Chrissy Position: Physician - Family Med Member Role: Primary Care Provider Address: Address: [facility] [address] [place] [address] [place] Care Team Related Persons Name: MARTELL VEGA Address: home [address] [phone] Name: MARTELL VEGA Address: home [address] [phone]
[2023-12-08] MEDS: ceFAZolin 2000MG 2,000 MG/15 ML SYR IV SCH (00:22)
[2023-12-08] MEDS: ACETAMINOPHEN 500 MG TAB PO PRN (01:44)
[2023-12-08] MEDS: PANTOprazole 40 MG TAB PO SCH (07:48)
[2023-12-08] MEDS: DIPHTHER/TETAN/PERTUS Vaccine (Tdap, Adol/Adult) 0.5mL IM ONE (08:21)
--- NOTE | 2023-12-08 10:26 | Discharge Summary ---
Date of Service December 08, 2023 Admission HPI Per Admitting Provider History of Present Illness This 48-year-old female presents today with her , for evaluation of her right wrist. She arrived at the ED after falling down approximately 5 steps while taking a toy truck to the basement. She slipped on the steps and landed on the basement floor. She had medial onset of pain in her wrist. Deformity was noted. [id number]. She denies any numbness or tingling. No prior history of wrist injury. Radiographic imaging has already been obtained. Last food was last evening. Admission Exam Per Admitting Provider General: Well-developed, well-nourished, obese middle-aged female, in obvious discomfort. Crying and yelling at times. Skin: Warm and dry with good turgor. No rashes. No ecchymosis or erythema. Obvious deformity of her right wrist. No open wounds. Musculoskeletal: Patient has discomfort with palpation of her right shoulder, elbow, forearm, wrist, and hand. Worst pain is at the wrist. There is an obvious wrist deformity. She has minimal motion of her digits secondary to wrist pain. Passive flexion and extension of the fingers causes severe increase of her wrist pain. No pain with palpation over her left arm. Intact motor function of her lower extremities. She has been ambulatory. Neurologic: Gross sensation is intact across the right hand and digits by soft touch. Capillary refill is equal for each of the fingers. Principal Diagnosis Open fracture right distal radius Discharge Exam Right upper extremity: Dressing and splint are clean dry intact and left in place. Patient is able to come out of the sling and reach terminal flexion extension her elbow. Light movement of her shoulder causes some aching pain in the posterior aspect. She does have appropriate dexterity of her fingers but all digits appear to be edematous. She is able to resist compression of digits 2 through 5. She is able to resist traction and pincer grasp and thumb and index finger. She is able to detect light sensation to touch over the pads of all digits. She is neurovascularly intact. Discharge Data Allergies Allergy/AdvReac Type Severity Reaction Status Date / Time No Known Drug Allergies Allergy Verified 04/29/21 11:25 Consultations 12/07/23 12:38 Consult Orthopedic Surgery Stat Procedures Performed Operation Date: 12/07/23 15:00 Actual Procedures p Grade one Right distal radius Open Reduction Internal Fixation, right wrist incision and drainage to bone(Right) - Surya John MD Ordered Studies 12/07/23 [place] wrist RT 3V RTN Routine 12/07/23 12:28 CT wrist RT wo con Stat Hospital Course (1) History of open reduction and internal fixation (ORIF) procedure: Patient had an uneventful overnight stay following open reduction internal fixation of her right distal radius. She was admitted for pain control and administration of IV antibiotics. We will plan on discharging her home today after her second dose of Ancef at around 5 PM. We will schedule her to follow- up in our clinic in 2 weeks. At that point we will remove her splint and transition her to a Thermoplast splint and I will provide her with an order to start outpatient physical therapy. PT/OT Ice with easy wrap Pain control with p.o. medication DVT prophylaxis with aspirin and LISA stockings Sling use Antibiotics for infection prevention Nonweightbearing in right upper extremity Come out of the sling to work on range of motion of fingers elbow and shoulder Follow-up at [facility] orthopedics as scheduled. With questions contact our clinic at [phone] Total Time Total Time Spent Total Time Spent (In Minutes): 25 mins Discharge Plan Discharge Items Patient Disposition: Home - Self-Care Reason For Visit: RIGHT DISTAL RADIUS FRACTURE Discharge Diagnosis: Right distal radius fracture Activity: As commented below Lifting: Wait until after follow-up appointment Bathing: Keep incision dry Bathing Comment: May shower today Sexual Activity: When tolerated Exercise/Sports: Wait until after follow-up appointment Driving/Machine Use: No driving until cleared by casework specialist Weightbearing: Right non-weightbearing Weightbearing Comment: With sling use Non-emergency contact: Surgeon Call non-emergency contact if: you have any medication questions, your pain is not controlled, your temperature is above 101.5, your wound has increased drainage and your wound pain has increased Follow-up/Referrals: Waldo Wharton MD [Physician] - Chrissy Washington MD [Primary Care Provider] - Diet: Regular Addtl Attending Provider Instructions: Post-operative Instructions Dear Patient and Family/Friends, Before you are discharged from the hospital, it is important to know what to expect when you get home after surgery. To that end, we have created this sheet of discharge instructions which covers many commonly asked questions. Make sure you go through this sheet in its entirety with your nurse before you are discharged. Please note that we will go over the specifics of your surgery and recovery when you return for your first post-operative visit. Sincerely, Dr. John Medications 1. Oxycodone 5 mg: Take 1-2 tabs every 4-6 hours as needed for postoperative pain control. This prescription will be sent to your pharmacy. 2. Diclofenac sodium 75 mg: Take 1 tab twice daily for the first 30 days postoperatively for pain and inflammation relief. This will also be sent to your pharmacy. 3. Aspirin 81 mg: Take 1 tab daily for the first 30 days postoperatively for blood clot prevention. Please purchase this medication. 4. Cephalexin 500 mg: Take 1 tab 3 times daily for the first 5 days postoperatively for infection prevention 5. Extra strength Tylenol 500 mg: Take 2 tabs every 6-8 hours as needed for additional pain relief. Please purchase this medication. Pain Expect to be in a fair amount of pain after surgery. Remember, our goal is not to eliminate your pain, but to make it tolerable. It is a good idea to stay ahead of your pain by taking the medications you were prescribed once you get home. Typically, the pain starts improving 3-7 days after surgery. You should start weaning off the narcotic pain medication (oxycodone, hydrocodone, hydromorphone, morphine) as soon as your pain improves. Please call our office if your pain is not adequately controlled. Ice Ice your operative site at least 5 times a day for 15-30 minutes at a time. Make sure you have a thin cloth between the ice or cooling unit and your skin to prevent diehl bite. This is especially important if you received a nerve block. Continue icing your operative site for the first 5-7 days after surgery, then as needed. Diet/Nausea/Vomiting Start by drinking clear liquids and eating crackers. If you can tolerate this, then you may resume your normal diet. If you feel nauseated or vomit, take Zofran/ondansetron (if prescribed). Please call our office if you have intractable nausea or vomiting, or, if after hours, you may go to the Emergency Room for help. Constipation Constipation is a common side effect of narcotic pain medication. If you have not had a bowel movement within 2 days after surgery, we recommend purchasing an over the counter laxative such as Milk of Magnesia, Dulcolax, or Miralax from a local pharmacy, and taking it as instructed. Call our clinic if any questions. Slings and Braces If you were placed in a sling or brace, it must be worn at all times, including sleep. You may remove your sling or brace for physical therapy, home exercises, and showering. The length of time you will be in your brace and range of motion restrictions depends on what surgery you had; these details will be reviewed at your first post-operative appointment. Weight bearing and Range of Motion. Do not bear any weight through your operative extremity immediately after surgery. If you had upper extremity surgery, do not lift anything with that arm. If you are in a knee brace, keep it locked in place until your follow-up. We will discuss your weight bearing, range of motion, and lifting restrictions in detail at your first post-operative appointment. Continuous Passive Motion (CPM) Machine If you were prescribed a CPM machine, it will start after your first post- operative appointment, at which time we will give you instructions on the range of motion settings and duration of treatment Physical therapy You will be given a prescription for physical therapy or occupational therapy at your first post-operative appointment. Typically, patients start therapy within 1 week of surgery Wound care and showering We will inspect your wound at your first post-operative visit, and may do a dressing change at that time. Most patients will be in a water-proof dressing that is removed 14 days after surgery. It is normal to see some dried blood on the dressing. Do not remove your dressing, paper strips or sutures yourself unless you are given permission. Showering is allowed the day after surgery. Do not scrub or remove any dressings. The wound should not be submerged underwater (i.e. in a bathtub or pool) until 4 weeks after surgery LISA stockings If you were given white stockings, these are to be worn at all times except to shower (on both legs) for the first 2 weeks after surgery. Driving You may not drive while taking narcotic pain medication or while in a cast, splint, sling or brace. You, the patient, need to make the final determination about when you are safe to drive, however, the earliest you may consider driving after surgery is below: Hand/Wrist/Elbow Surgery: 3 days Shoulder Surgery: 2 weeks Hip,/Knee/Ankle Surgery: 4 weeks Fracture repair: 6 weeks Return to Work Your return to work depends on what surgery was done and what type of work you do. Please bring any paperwork your employer needs completed to your first post-operative visit. Also, bring a description of your job duties, as this helps us to understand what risks you may face at work. Travel Avoid long distance travel (greater than 1 hour) in airplanes and cars for the first 6 weeks after surgery. If you must travel, you need to have a Doppler ultrasound done before you travel to rule out a blood clot in your legs. Follow-up You should have a follow-up appointment already scheduled 1-2 days after surgery. If not, please contact our office to make this appointment before you leave the hospital. When to call the office It is normal to have swelling and bruising in the limb that was operated on. This will improve with time. It is also normal to have fevers for the first 2 d ays after surgery. Reasons you should call your doctor include: Uncontrolled pain; Nausea, vomiting, or constipation that does not improve with medication; Fevers over 101.5, chills, sweats; Drainage or bleeding from the wound; Foul odor; Spreading areas of redness; Any other concerns Addtl Cardiac Exercise Specialist Provider Instructions: Ice and elevate the wrist for swelling and pain. Do not get the splint wet. Alternate ibuprofen 600 mg and Tylenol 1000 mg for most effective pain relief: Ibuprofen --4 HRS--> Tylenol --4 HRS--> ibuprofen --4 HRS--> Tylenol .... You have been provided a prescription for Oxy IR 5 mg that can be taken every 4- 6 hours if needed for worse pain. Continue follow-up with Dr. Wharton as instructed for further management. Pending Studies at Discharge: No Stand-Alone Forms: My [facility], Important Visit Information Medications and DC Order Prescriptions: New aspirin 81 mg Tablet,Delayed Release (Dr/Ec) 81 mg PO BID 30 Days Qty: 60 0RF acetaminophen [Tylenol Extra Strength] 500 mg Tablet 1,000 mg PO Q8H PRN (Reason: pain) 30 Days Qty: 90 0RF oxycodone 5 mg Tablet 5 mg PO Q4 MDD 6 tablets PRN (Reason: Postoperative pain control) Qty: 28 0RF diclofenac sodium 75 mg tablet,delayed release (DR/EC) 75 mg PO BID 30 Days Qty: 60 0RF Discontinued hydrocodone-acetaminophen 5-325 mg tablet 1 tab PO Q4H PRN (Reason: pain) Qty: 5 0RF Rx Instructions: 1-2 tabs every 4-6 hours as needed for pain ibuprofen [Advil] 200 mg tablet 600 mg PO QID PRN (Reason: fever or pain) Qty: 30 0RF Discharge Orders: Discharge Order (Routine); Ordered 12/08/23 Ordered By: Nolberto Kasper Admission Data Admit Date/Time: 12/07/23 17:03 Attending Provider: Surya John Admit Provider: Surya John Primary Care Provider: Chrissy Washington Other Providers: Waldo Wharton
--- NOTE | 2023-12-08 10:32 | Orthopedic Progress Note ---
Date of Service December 08, 2023 Assessment & Plan (1) History of open reduction and internal fixation (ORIF) procedure: Plan: PT/OT Ice with easy wrap Pain control with p.o. medication DVT prophylaxis with aspirin and LISA stockings Sling use Antibiotics for infection prevention Nonweightbearing in right upper extremity Come out of the sling to work on range of motion of fingers elbow and shoulder Follow-up at [facility] orthopedics as scheduled. With questions contact our clinic at [phone] Admission and Anticipated Discharge Date Admission Date: December 07, 2023 Subjective This 40-year-old female is seen day 1 status post open reduction internal fixation for open right distal radius fracture. Patient states she is doing fairly well today. She states that her pain is being managed with oral oxycodone and occasionally IV Dilaudid. She is currently receiving IV antibiotics due to the fracture being open. Currently she denies chest pain, shortness of breath, fever, chills, sweats or numbness or tingling in her right upper extremity. She states that her fingers feel little tight and her shoulder aches a little bit with movement. She denies nausea, vomiting, diarrhea or difficulty voiding. Review of Systems Review of Systems: All systems reviewed & are unremarkable except as noted in Subjective Physical Exam Physical Exam: Right upper extremity: Dressing and splint are clean dry intact and left in place. Patient is able to come out of the sling and reach terminal flexion extension her elbow. Light movement of her shoulder causes some aching pain in the posterior aspect. She does have appropriate dexterity of her fingers but all digits appear to be edematous. She is able to resist compression of digits 2 through 5. She is able to resist traction and pincer grasp and thumb and index finger. She is able to detect light sensation to touch over the pads of all digits. She is neurovascularly intact. Results & Data Vital Signs (Past 12 Hours) Vital Signs Temp Pulse Resp BP Pulse Ox O2 Del Method 12/08/23 07:30 36.5 C 77 16 125/74 95 Room Air 12/08/23 03:01 36.6 C 98 H 17 117/70 96 Room Air Diagnostic Findings Laboratory Results WBC 8.99 K/ul (4.8-10.8) 12/07/23 10:41 RBC 4.38 M/uL (4.20-5.40) 12/07/23 10:41 Hgb 13.4 g/dl (12.0-16.0) 12/07/23 10:41 Hct 39.4 % (37.0-47.0) 12/07/23 10:41 MCV 90.0 fL (80.0-100.0) 12/07/23 10:41 MCH 30.6 pg (25.0-34.0) 12/07/23 10:41 MCHC 34.0 g/dL (32.0-36.0) 12/07/23 10:41 RDW Std Deviation 44.2 fL (36.4-46.3) 12/07/23 10:41 RDW Coeff of Brian 13.5 % (11.5-14.5) 12/07/23 10:41 Plt Count 303 K/uL (130-400) 12/07/23 10:41 MPV 10.4 fL (9.4-12.4) 12/07/23 10:41 Sodium 139 mmol/L (136-145) 12/07/23 10:41 Potassium 4.1 mmol/L (3.5-5.1) 12/07/23 10:41 Chloride 105 mmol/L (98-107) 12/07/23 10:41 Carbon Dioxide 24 mmol/L (21-32) 12/07/23 10:41 Anion Gap 10 (3-11) 12/07/23 10:41 BUN 15 mg/dl (6-23) 12/07/23 10:41 Creatinine 0.85 mg/dl (0.6-1.2) 12/07/23 10:41 Est Cr Clr Drug Dosing Not Reportable 12/07/23 10:41 Est GFR ( Amer) 93.9 ml/min 12/07/23 10:41 Est GFR (Non-Af Amer) 81.0 ml/min 12/07/23 10:41 BUN/Creatinine Ratio 17.6 (10-20) 12/07/23 10:41 Glucose 111 mg/dl (70-99(Fasting)) H 12/07/23 10:41 Calcium 9.1 mg/dl (8.6-10.3) 12/07/23 10:41 HCG, Qual Negative (Negative) 12/07/23 10:[address] 12/07/23 12:28 CT wrist RT wo con HISTORY: 48 years-old Female fracture acute right wrist pain status post fall COMPARISON: Wrist radiographs of same day TECHNIQUE: Multiple axial CT images of the right wrist were obtained without IV contrast. Additional 3-D rendered images were generated from a separate workstation and submitted for review. A dose lowering technique was used consistent with the principals of ALARA. FINDINGS: Acute displaced and comminuted transversely oriented fracture through the distal radial metaphysis with intra-articular extension again noted. The distal fragment is dorsally displaced 1.6 cm and demonstrates 2.2 cm foreshortening/apposition. The radiocarpal articulation appears maintained. No intra-articular loose body identified within the radiocarpal articulation. The carpal bones appear intact. Minimal osteoarthritis of the triscaphe and first carpometacarpal joints. The imaged ulna and carpal bones appear intact. Tendons and ligaments are not well evaluated by CT technique. Moderate subcutaneous and deep tissue edema with posttraumatic joint effusion/hemarthrosis of the wrist. 2 mm bone fragment interposed between the trapezoid and capitate on image 325 series 3 favors a small osteophyte. A tiny age-indeterminate fracture fragment considered less likely. IMPRESSION: 1. Acute, comminuted, displaced and foreshortened distal radial fracture redemonstrated. 2. No additional acute fracture or dislocation identified. ACT 112: Negative or not required by law. The above report was generated using voice recognition software. It may contain grammatical, syntax or spelling errors. Electronically signed by: Lui Figueroa M.D. 12/07/2023 2:43 PM Wrist X-Ray 12/07/23 17:08 XR wrist RT min 3V routine CLINICAL HISTORY: Post op ORIF COMPARISON: CT of the right wrist and right wrist radiographs performed earlier today. FINDINGS: Overlying cast is noted. Open reduction and internal fixation of the distal right radial fracture with plate and screws is noted. Fracture alignment has markedly improved and appears near anatomic. There are no unexpected radiopaque foreign bodies. Carpal bones are intact. IMPRESSION: Expected findings following open reduction and internal fixation of the distal right radial fracture. ACT 112: Negative or not required by law. Electronically signed by: Duke Marcelo M.D. 12/07/2023 6:02 PM
== END 2023-12-08 16:11 | disposition home or self-care (01) ==
LOC: ED 10:17 → OR 14:27 → 3W 14:27